=== PATIENT | male | born 2000 | race Caucasian/White ===

== ENCOUNTER 2021-09-03 10:30 | Observation (INO) ==
[2021-09-03] MEDS ORDERED: Dexamethasone IV 4 MG/ML 5 ML VIAL (20 MG) IVPB ONE (12:04)
[2021-09-03] MEDS ORDERED: Morphine 4 MG/ML VIAL (1 ml) IV ONE ×2 (12:29→13:45)
[2021-09-03 21:13] LABS: ABS Monocytes 0.3 10^3/ul (0-0.8); ABS Neutrophils 11.3 10^3/ul (1.5-7.7); Eosinophil % 0.1 %; Hematocrit 49 % (42-52); Hemoglobin 16.6 g/dL (14.0-18.0); Lymphocyte % 8.2 %; Mean Corpuscular HGB Conc 34 g/dL (31-36); Mean Corpuscular Hemoglobin 26 pg (27-31); Mean Corpuscular Volume 78 fL (80-94); Mean Platelet Volume 7.3 fL (7.4-10.4); Platelet Count 325 10^3/uL (150-450); Red Blood Count 6.32 10^6 /uL (4.18-5.48); Red Cell Distribution Width 15 % (10-15); White Blood Count 12.6 10^3/uL (3.5-10.8)
[2021-09-03 21:25] LABS: INR 1.26 (0.86-1.15)
[2021-09-03 21:43] LABS: Albumin 4.8 g/dL (3.2-5.2); Albumin/Globulin Ratio 1.3 (1-3); C Reactive Protein 4.07 mg/L (<8.01); Calcium 10.5 mg/dL (8.6-10.3); Globulin 3.7 g/dL (2-4); Magnesium 1.8 mg/dL (1.9-2.7); Potassium 4.1 mmol/L (3.5-5.0); Total Bilirubin 0.9 mg/dL (0.2-1.0); Total Protein 8.5 g/dL (6.4-8.9); eGFR CKD-EPI 129.1 (>60)
[2021-09-04] MEDS ORDERED: Magnesium Sulfate IV 1GM/100ML 1 GM/100 ML BAG IV ONE (09:00)
[2021-09-04] MEDS ORDERED: Senna TAB 8.6 mg TAB PO PRN (13:02)
[2021-09-04] MEDS ORDERED: Polyethylene Glycol 3350 17 GM PACKET PO PRN (13:02)
[2021-09-04] MEDS ORDERED: Magnesium Hydroxide LIQ 30 ML UDC PO PRN (13:02)
[2021-09-04] MEDS: Lidocaine PATCH 5% PATCH TRANSDERM SCH (20:19)
[2021-09-05 05:50] LABS: ABS Eosinophils 0.3 10^3/ul (0-0.6); ABS Lymphocytes 3.1 10^3/ul (1.0-4.8); ABS Monocytes 0.8 10^3/ul (0-0.8); ABS Neutrophils 6.3 10^3/ul (1.5-7.7); Hematocrit 48 % (42-52); Hemoglobin 16.4 g/dL (14.0-18.0); Lymphocyte % 29.4 %; Mean Corpuscular HGB Conc 34 g/dL (31-36); Mean Corpuscular Hemoglobin 27 pg (27-31); Mean Corpuscular Volume 79 fL (80-94); Mean Platelet Volume 7.4 fL (7.4-10.4); Platelet Count 269 10^3/uL (150-450); Red Blood Count 6.06 10^6 /uL (4.18-5.48); Red Cell Distribution Width 15 % (10-15); White Blood Count 10.6 10^3/uL (3.5-10.8)
[2021-09-05 06:23] LABS: Calcium 9.9 mg/dL (8.6-10.3); eGFR CKD-EPI 126.3 (>60)
[2021-09-05] MEDS: Lidocaine PATCH 5% PATCH TRANSDERM SCH (07:41)
[2021-09-05 08:43] LABS: Magnesium 2.2 mg/dL (1.9-2.7)
[2021-09-05 11:52] VITALS: BP 153/91
== END 2021-09-05 15:06 | disposition home or self-care (01) ==
LOC: EDHOLD 10:30 → ED 10:30 → SUATTDRO 20:15 → SSU 23:29
PROVIDERS: ADMIT Internal Medicine; ATTEND Student in an Organized Health Care Education/Training Program